=== PATIENT | male | born 1945 | race African-American/Black ===

== ENCOUNTER 2016-10-31 06:02 | Day surgery (SDC) | payer MEDICARE ==
[~2016-10-31] VITALS: Ht 172.7 cm; Wt 78.2 kg
[~2016-10-31 06:02] MED LIST: STOOL SOFTENER; [UNRECOGNIZED DRUG - CODE] TOP; [UNRECOGNIZED DRUG - MIXTURE]
[2016-10-31 07:04] VITALS: BP 157/75; PULSE 48; RESP 18; TEMP 98.4; O2SAT 100
[2016-10-31] MEDS ORDERED: ASPI81CH CHEW (07:18)
[2016-10-31] MEDS ORDERED: CLOP75TA PO (07:18)
[2016-10-31] MEDS ORDERED: NOVO7030P2 SQ (07:21)
[2016-10-31] MEDS ORDERED: OXYC1TAB63 PO (07:21)
[2016-10-31] MEDS ORDERED: METO25TA3 PO (07:21)
[2016-10-31] MEDS ORDERED: METF750T PO (07:21)
[2016-10-31] MEDS ORDERED: ATOR1TAB18 PO (07:21)
[2016-10-31] MEDS ORDERED: LISI-519 PO (07:21)
[2016-10-31] MEDS ORDERED: MULT1TAB85 PO (07:21)
[2016-10-31] MEDS ORDERED: MORPHINE SULFATE 4 MG/ML INJ ONE (07:51)
[2016-10-31] MEDS ORDERED: HEPARIN-NS/PF INJ 500 ML ONE (08:29)
[2016-10-31] MEDS ORDERED: MORPHINE SULFATE 4 MG/ML INJ IV PUSH ONE (08:30)
[2016-10-31] MEDS ORDERED: MIDAZOLAM HCL 2 MG/2 ML VIAL ONE ×4 (08:30→10:01)
[2016-10-31] MEDS ORDERED: HEPARIN SODIUM - IV 10,000 UNITS/10 ML VIAL ONE (08:30)
[2016-10-31] MEDS ORDERED: NITROGLYCERIN INJ 5 ML ONE ×4 (08:30→10:42)
[2016-10-31] MEDS ORDERED: ADENOSINE IV SOLN 3 MG/ML 2 ML VIAL ONE (10:02)
[2016-10-31] MEDS ORDERED: SODIUM CHLOR 0.9% 1000 ML INJ 1,000 ML IV SCH (11:01)
[2016-10-31] MEDS ORDERED: MORPHINE SULFATE 4 MG/ML INJ IV PUSH PRN (11:15)
[2016-10-31] MEDS ORDERED: oxyCODONE/ACETAMINOPHEN 10 MG/325 MG TAB PO PRN (11:15)
[2016-10-31] MEDS ORDERED: ATROPINE SULFATE 1 MG/ML VIAL IV PRN (11:15)
[2016-10-31] MEDS ORDERED: TEMAZEPAM 15 MG CAP PO PRN (11:15)
[2016-10-31] MEDS ORDERED: MISC INFORMATION XX ONE (11:15)
[2016-10-31] MEDS ORDERED: LORazepam 2 MG/ML VIAL IV PRN (11:15)
[2016-10-31] MEDS ORDERED: METOCLOPRAMIDE HCL 10 MG/2 ML VIAL IV PRN (11:15)
[2016-10-31] MEDS ORDERED: LIDOCAINE HCL 1% 50 ML VIAL INFIL PRN (11:15)
[2016-10-31] MEDS ORDERED: BACITRACIN OINT 0.9 GM PKT TOP ONE (11:15)
[2016-10-31] MEDS ORDERED: SODIUM CHLOR 0.9% 250 ML INJ 250 ML IV PRN (11:15)
[2016-10-31] MEDS: ONDANSETRON HCL 4 MG/2 ML VIAL IV PRN ×2 (12:00→15:26)
--- NOTE | 2016-10-31 12:26 | MA ---
cc: KEILA BOYER DATE: 10/31/2016 PROCEDURE PERFORMED 1. Fluoroscopy with interpretation. 2. Left lower extremity peripheral angiography first, second, third order of visualization and interpretation. 3. Descending aortography. 4. Orbital rotational atherectomy, balloon angioplasty, drug coated balloon of the left superficial popliteal and peroneal vessels. METHOD The risks, benefits and alternatives were discussed with the patient. The patient understood and consented to the procedure. The patient was brought to the catheterization lab and placed on the catheterization table. Right groin was prepped and draped in usual sterile fashion. Right groin was anesthetized with 2% lidocaine. Right common femoral artery was cannulated and a 5-Yemeni 11 cm sheath was placed without difficulty. DESCENDING AORTOGRAPHY Descending aortography was performed in anterior-posterior views using CO2 angiography. The descending aorta has mild infrarenal descending aortic atherosclerosis, bilateral renal arteries appear patent. PERIPHERAL ANGIOGRAPHY 1. Left internal, external, common iliac arteries have minor luminal irregularities. Right common iliac artery has a stent present which is widely patent. The left common femoral and profunda arteries are patent. The left superficial femoral proximally has only minor luminal irregularities. In the mid segment there is a 70% tubular stenosis, in the mid to distal segment there is more moderate diffuse disease. The popliteal is occluded. There is single-vessel runoff via collaterals. The posterior tibial, anterior tibial are also occluded. The peroneal is diffusely diseased. There is no visualization of dorsalis, pedis or posterior tibial below the ankle. PERCUTANEOUS INTERVENTION A 6-Yemeni 65 cm destination Terumo sheath was advanced up-and-over the arch and down to the mid superficial femoral artery. Trailblazer catheter was advanced down to the occlusion. 0.018 inch Glascock wire was then advanced into the chronic occlusion, down into the peroneal vessel. With a great deal of time and effort we were able to get into the proximal segment of the peroneal. A [address] wire was then carefully navigated down to the distal segment. Selective digital subtraction angiography did confirm intraluminal placement, 0.014 inch 335 cm trailblazer catheter is then advanced down to the distal peroneal vessel. A 335 cm viper wire was navigated down the distal peroneal vessel. Trailblazer catheter was removed. 1.5 mm CSI atherectomy catheter was then performed through the superficial femoral, popliteal and peroneal vessels on multiple sequential rotational atherectomy passes. The patient received adenosine and nitroglycerin throughout to avoid no reflow phenomenon. A 3.0 x 3.5 x 320 mm Medtronic tapered balloon was then deployed in the peroneal vessel. A 5.0 x 120 mm Medtronic balloon was deployed in the popliteal artery. Repeat angiography showed now DIEGO-III flow but still severe residual stenosis. A 4.0 x 150 mm Medtronic drug coated balloon was deployed in the proximal to mid peroneal vessel. A 5.0 x 115 mm Medtronic drug coated balloon was advanced to the popliteal and deployed. The same balloon was then deployed in the mid segment of the superficial femoral artery. Repeat angiography showed DIEGO III flow but still an eccentric moderate to severe stenosis in the popliteal artery. A 6.0 x 60 mm Medtronic balloon was then deployed in the popliteal and repeat angiography showed DIEGO-III flow, mild to moderate residual stenosis but given the good angioplasty result we did not want to proceed with any endovascular stenting. Wire was removed. Sheath was removed and 6-Yemeni short sheath was sewn into place to be removed with manual hemostasis. CONCLUSION 1. Severe multilevel peripheral arterial disease involving superficial femoral artery and chronically occluded popliteal and peroneal vessels. 2. Successful orbital rotational atherectomy and balloon angioplasty with drug coated balloons of the superficial femoral, popliteal and peroneal vessels. PLAN Hopefully this will translate well with symptomatic improvement. He only has single-vessel runoff. The anterior tibial and posterior tibial are not well visualized distally and not approachable percutaneously. Hopefully this will collateralize the distal foot enough for wound healing. MD WINSTON Yu/ADRIEL /11:15 AM /12:03 PM LIAS
[2016-10-31] MEDS: oxyCODONE/ACETAMINOPHEN 5 MG/325 MG TAB PO PRN ×2 (12:50→14:11)
[2016-10-31] MEDS ORDERED: IOHEXOL 350 MG/ML 100 ML BTL (for Cath Lab) OTHER ONE (13:43)
[2016-10-31 20:00] VITALS: BP 126/71; PULSE 88; RESP 20; TEMP 98; O2SAT 98
[2016-10-31 21:00] VITALS: PULSE 82
[2016-10-31] MEDS ORDERED: ATORVASTATIN 80 MG TAB PO SCH (21:00)
[2016-10-31 22:00] VITALS: PULSE 78
[2016-10-31 23:00] VITALS: PULSE 78
[2016-10-31] MEDS: METOPROLOL TARTRATE 25 MG TAB PO SCH (23:10)
[2016-11-01] VITALS (8 sets, daily range): BP systolic 121–134; BP diastolic 63–70; PULSE 48–82; RESP 16–18; TEMP 97.9–98; O2SAT 100
[2016-11-01 04:11] LABS: AUTOMATED NEUTROPHIL # 5.2 TH/MM3 (1.8-7.7); BASOPHIL # 0.1 TH/MM3 (0-0.2); BASOPHIL % 0.7 % (0.0-2.0); EOSINOPHIL # 0.2 TH/MM3 (0-0.4); EOSINOPHIL % 3.2 % (0.0-4.0); HEMATOCRIT 29.3 % (39.0-51.0); HEMO FLAGS DIFF FINAL; LYMPH % 17.9 % (9.0-44.0); LYMPHOCYTE # 1.4 TH/MM3 (1.0-4.8); MEAN CELL VOLUME 89.7 FL (80.0-100.0); MEAN CORPUSCULAR HEMOGLOBIN 30.5 PG (27.0-34.0); NEUT % 68.2 % (16.0-70.0); PLATELET COUNT 174 TH/MM3 (150-450); RED BLOOD COUNT 3.26 MIL/MM3 (4.50-5.90); WHITE BLOOD COUNT 7.7 TH/MM3 (4.0-11.0)
[2016-11-01 04:36] LABS: BICARBONATE 25.2 MEQ/L (21.0-32.0); POTASSIUM 4.5 MEQ/L (3.5-5.1)
[2016-11-01 04:38] LABS: HDL CHOLESTEROL 31.5 MG/DL (40.0-60.0)
--- NOTE | 2016-11-01 07:52 | PD.CARD.PN ---
Subjective Subjective Remarks denies CV complaints Objective Vital Signs / I&O Vital Signs Date Time Temp Pulse Resp B/P Pulse Ox O2 Delivery O2 Flow Rate FiO2 11/01/16 04:00 98.0 66 18 127/69 100 11/01/16 00:00 98.0 56 18 134/70 100 10/31/16 20:00 98.0 88 20 126/71 98 10/31/16 16:57 92 Room Air 10/31/16 14:20 18 Physical Exam GENERAL: Well-nourished, well-developed patient in no apparent distress. NECK: No JVD. No carotid bruit. CARDIOVASCULAR: Regular rate and rhythm. S1/S2 no murmur, rub, or gallop. RESPIRATORY: No accessory muscle use. Clear to auscultation. Breath sounds equal bilaterally. GASTROINTESTINAL: Abdomen soft, non-tender, nondistended. MUSCULOSKELETAL: Extremities without clubbing, cyanosis, or edema. Laboratory Laboratory Tests Test 11/01/16 04:00 White Blood Count 7.7 TH/MM3 Red Blood Count 3.26 MIL/MM3 Hemoglobin 9.9 GM/DL Hematocrit 29.3 % Mean Corpuscular Volume 89.7 FL Mean Corpuscular Hemoglobin 30.5 PG Mean Corpuscular Hemoglobin 34.0 % Concent Red Cell Distribution Width 14.0 % Platelet Count 174 TH/MM3 Mean Platelet Volume 8.9 FL Neutrophils (%) (Auto) 68.2 % Lymphocytes (%) (Auto) 17.9 % Monocytes (%) (Auto) 10.0 % Eosinophils (%) (Auto) 3.2 % Basophils (%) (Auto) 0.7 % Neutrophils # (Auto) 5.2 TH/MM3 Lymphocytes # (Auto) 1.4 TH/MM3 Monocytes # (Auto) 0.8 TH/MM3 Eosinophils # (Auto) 0.2 TH/MM3 Basophils # (Auto) 0.1 TH/MM3 CBC Comment DIFF FINAL Differential Comment Sodium Level 140 MEQ/L Potassium Level 4.5 MEQ/L Chloride Level 109 MEQ/L Carbon Dioxide Level 25.2 MEQ/L Anion Gap 6 MEQ/L Blood Urea Nitrogen 21 MG/DL Creatinine 1.30 MG/DL Estimat Glomerular Filtration 66 ML/MIN Rate Random Glucose 111 MG/DL Calcium Level 8.2 MG/DL Total Creatine Kinase 191 U/L Triglycerides Level 81 MG/DL Cholesterol Level 75 MG/DL LDL Cholesterol 27 MG/DL HDL Cholesterol 31.5 MG/DL Cholesterol/HDL Ratio 2.38 RATIO Assessment and Plan Problem List: (1) PAD (peripheral artery disease) Assessment and Plan s/p orbital rotational atherectomy and drug coated balloon angioplasty left SFA , popiteal and peroneal arteries. He can be discharged home now and f/u [facility]PD. He will continue Plavix Skinny Argueta Nov 01, 2016 07:52
[2016-11-01] MEDS ORDERED: INSULIN HUMAN NPH/R 70/30 1,000 UNITS/10 ML VIAL SQ SCH ×2 (08:00→17:00)
[2016-11-01] MEDS: METOPROLOL TARTRATE 25 MG TAB PO SCH (08:22)
[2016-11-01] MEDS ORDERED: ASPIRIN 81 MG CHEW TAB PO SCH (09:00)
[2016-11-01] MEDS ORDERED: LISINOPRIL 5 MG TAB PO SCH (09:00)
[2016-11-01] MEDS ORDERED: CLOPIDOGREL 75 MG TAB PO SCH (09:00)
--- NOTE | 2016-11-02 11:23 | EKG ---
Date Performed: 10/31/2016 Time Performed: 13:02:30 PTAGE: 70 years EKG: Sinus tachycardia with borderline 1st degree A-V block. --- Suspect arm lead reversal - onl y aVF, V1-V6 analyzed --- Extensive ST-T changes may be due to myocardial ischemia Abnormal ECG NO PREVIOUS TRACING DOCTOR: Lukas Storm Interpretating Date/Time 11/02/2016 11:20:21
== END 2016-11-01 11:35 | disposition home or self-care (01) ==
LOC: HDIC 06:02 → HDOC 06:02 → HCIS 20:27 → HDOC 11-01 11:35
PROVIDERS: ATTEND Internal Medicine
DX: I73.9 Peripheral vascular disease, unspecified (principal); I70.0 Atherosclerosis of aorta; I74.3 Embolism and thrombosis of arteries of the lower extremities; R94.31 Abnormal electrocardiogram [ECG] [EKG]; E11.9 Type 2 diabetes mellitus without complications; Z79.4 Long term (current) use of insulin
CPT/HCPCS: 37225; 37229; 75625; 75710; 80048; 80061; 82550; 82948; 85002; 85025; 85347; 86850; 86900; 86901; 93005; C1714; C1725; C1751; C1769; C1893; C2623; J0153; J1644; J1815; J2250; J2270; J2405; J3010; Q9967